=== PATIENT | female | born 1995 | race Caucasian/White ===

== ENCOUNTER 2017-05-19 01:26 | Emergency (ER) | payer SELFPAY ==
--- NOTE | 2017-05-19 01:44 | EDPHY ---
H & P Time Seen by Provider: 05/19/17 01:31 HPI/ROS: HPI: The patient presents brought in by ambulance as limited trauma activation. Approximately 20 minutes ago she was at a [employer] party and slid on a wet hardwood floor, falling forward and landing on her face. She did have loss of consciousness. She has sustained a lip laceration. As she does not have any other obvious injury. She denies headache, vomiting, vision changes. REVIEW OF SYSTEMS Constitutional: No fever, no chills. Eyes: No discharge. ENT: No sore throat. Cardiovascular: No chest pain, no palpitations. Respiratory: No cough, no shortness of breath. Gastrointestinal: No abdominal pain, no vomiting. Genitourinary: No hematuria. Musculoskeletal: No back pain. Skin: No rashes. Neurological: No headache. PMHx: Anemia of some sort TRAUMA PHYSICAL General Appearance: Alert, no distress Head: Atraumatic Eyes: Pupils equal, round, reactive ENT, Mouth: No hemotypanium, right-sided lower lip laceration which is 1.5 cm, with 1 cm inner lip laceration Neck: Non- tender, trachea midline Respiratory: No chest wall tenderness, no subcutaneous air, lungs clear bilaterallty Cardiovascular: Regular rate and rhythm Abdomen: Abdomen is soft and non-tender, pelvis stable Skin: No lacerations, No abrasion Back: No midline T/L/S pain Extremities: Non-tender, full range of motion Neurological: A&Ox3, GCS=15,normal motor function with 5/5 strength in all 4 extremities, normal sensory exam Source: Patient, EMS Exam Limitations: Intoxication Constitutional: Initial Vital Signs Temperature (C) 36.8 C 05/19/17 02:00 Heart Rate 100 05/19/17 02:00 Respiratory Rate 18 05/19/17 02:00 Blood Pressure 124/97 H 05/19/17 02:00 O2 Sat (%) 99 05/19/17 02:00 O2 Delivery Mode Room Air Allergies/Adverse Reactions: Milk Containing Products [dairy] Allergy (Verified 05/19/17 02:00) Home Medications: Medication Instructions Recorded NK [No Known Home Meds] 05/19/17 Medical Decision Making - Diagnostics Imaging Results: CT scan of head noncontrast is unremarkable, discussed with Dr. Brock of Radiology Imaging: Discussed imaging studies w/ java groovy developer Radiologist Procedures: LACERATION REPAIR Procedure: Laceration repair. Verbal consent was obtained from the patient. The linear 1.5cm laceration on the right lower lip involving the vermilion border was anesthetized using lidocaine 1% with epinephrine. The wound was scrubbed, draped and explored to its base with a gloved finger. There were no deep structures involved. No tendon injury was identified. . The wound was repaired with 4 simple interrupted sutures of 5-0 fast-absorbing plain gut. The wound repair was complex. The procedure was performed by myself. Differential Diagnosis: 21-year-old healthy female brought in by ambulance as limited trauma activation after a fall with positive loss of consciousness. On exam, she has a lip laceration. Given mechanism, current alcohol intoxication, I will plan for CT scan of her head to evaluate for any intracranial hemorrhage. In the emergency department, CT scan of her head was unremarkable. Lip laceration was repaired. She was eventually able to walk with a steady gait and became more clinically sober. She was discharged Departure - Departure Disposition: Home, Routine, Self-Care Clinical Impression: Head injury, Alcohol intoxication delirium, Laceration of vermilion border of lower lip Condition: Good Instructions: Alcohol Intoxication (ED), Facial Laceration (ED) Additional Instructions: You can take ibuprofen or Tylenol as needed if you develop a headache. You should have the sutures in for about 5 days in a should fall out on their own, there still in place, please return to the emergency room or go to the [facility] for removal. Referrals: [facility] [Outside] - As per Instructions
[2017-05-19 02:10] VITALS: TEMP 98.2
[2017-05-19 07:32] VITALS: BP 123/65; PULSE 105; RESP 20; O2SAT 98
== END 2017-05-19 07:29 | disposition home or self-care (01) ==
PROC: 0CQ1XZZ Repair Lower Lip, External Approach (ICD-10-PCS; principal; 2017-05-19)
DX: S01.511A Laceration without foreign body of lip, initial encounter (principal); S09.90XA Unspecified injury of head, initial encounter; F10.121 Alcohol abuse with intoxication delirium; W01.198A Fall on same level from slipping, tripping and stumbling with subsequent striking against other object, initial encounter